=== PATIENT | female | born 1950 | race Caucasian/White ===

== ENCOUNTER → 2022-01-22 09:08 | Outpatient (BNVA) | payer MEDICARE, MEDICAID, SELFPAY | PROVIDERS: Family Provider Nurse Practitioner Family; Visit Provider Nurse Practitioner Family | DX: N31.9 Neuromuscular dysfunction of bladder, unspecified (principal); R33.9 Retention of urine, unspecified; Z93.59 Other cystostomy status | CPT/HCPCS: 51702; 99203 ==